=== PATIENT | male | born 1975 | race Caucasian/White ===

== ENCOUNTER 2020-12-06 07:47 | Emergency (ER) | payer OTHER ==
[2020-12-06] MEDS ORDERED: Lisinopril 10 MG Tab ONE (07:50)
[2020-12-06] MEDS ORDERED: Cyclobenzaprine 10 MG Tab ONE (07:50)
[2020-12-06] MEDS ORDERED: Acetaminophen/HYDROcodone 325-10 MG Tab ONE (07:50)
[2020-12-06] MEDS ORDERED: HYDROmorphone 2 MG/ML SDV IM ONE ×2 (09:04→09:36)
[2020-12-06] MEDS ORDERED: Cyclobenzaprine 10 MG Tab PO ONE (09:10)
[2020-12-06] MEDS ORDERED: Ondansetron 4 MG/2 ML SDV IVPUSH PRN (09:11)
--- NOTE | 2020-12-06 09:19 | EDM.PDOC ---
ED HPI GENERAL MEDICAL PROBLEM - General Chief Complaint: General Stated Complaint: FALL Time Seen by Provider: 12/06/20 10:00 Source of Information: Reports: Patient, Family History Limitations: Reports: Other (pain) - History of Present Illness Onset: Other (2 days) Duration: Day(s):, Getting Worse Location: Reports: Back Quality: Reports: Sharp, Stabbing, Throbbing Severity: Severe Improves with: Reports: None Worsens with: Reports: None Associated Symptoms: Reports: Other (Contusion Rt gluteal) Bilateral Posterior Back Pain Score (Numeric/FACES): 10 Past Medical History Cardiovascular History: Reports: Other (See Below) (HTN) Social & Family History - Tobacco Use Tobacco Use Status *Q: Heavy Tobacco User Tobacco Use Within Last Twelve Months: Cigarettes Smoking Cessation Information Provided To Patient: No (not interested) ED ROS GENERAL - Review of Systems Review Of Systems: See Below Constitutional: Reports: No Symptoms HEENT: Reports: No Symptoms Respiratory: Reports: No Symptoms Cardiovascular: Reports: No Symptoms Endocrine: Reports: No Symptoms GI/Abdominal: Reports: No Symptoms : Reports: No Symptoms Musculoskeletal: Reports: Muscle Pain, Muscle Stiffness, Other (feet swelling ) Skin: Reports: Other (contusion Rt gluteal) Neurological: Reports: No Symptoms Psychiatric: Reports: No Symptoms Hematologic/Lymphatic: Reports: No Symptoms Immunologic: Reports: No Symptoms ED EXAM, GENERAL - Physical Exam Exam: See Below Exam Limited By: Other (pain) General Appearance: Severe Distress Eye Exam: Bilateral Eye: PERRL Ears: Normal External Exam Nose: Normal Inspection Throat/Mouth: Normal Inspection Head: Atraumatic, Normocephalic Neck: Normal Inspection, Non-Tender Respiratory/Chest: No Respiratory Distress, Lungs Clear GI/Abdominal: Normal Bowel Sounds, Soft, Non-Tender (Male) Exam: No Hernia Rectal (Males) Exam: Deferred Back Exam: Muscle Spasm, Vertebral Tenderness Extremities: Pedal Edema Neurological: Alert, Oriented, CN II-XII Intact Psychiatric: Normal Affect Skin Exam: Warm, Dry, Intact Lymphatic: No Adenopathy Course - Vital Signs Last Recorded V/S: Last Vital Signs Temp 36.4 C 12/06/20 10:42 Pulse 83 12/06/20 10:42 Resp 16 12/06/20 10:42 BP 174/104 H 12/06/20 10:42 Pulse Ox 94 L 12/06/20 10:42 - Orders/Labs/Meds Orders: Active Orders 24 hr Category Date Time Status Chest Abdomen Pelvis w wo Cont [CT] Stat Exams 12/06/20 Taken Head wo Cont [CT] Stat Exams 12/06/20 09:01 Taken Cyclobenzaprine [Flexeril] Med 12/06/20 09:23 Active 10 mg PO TID PRN Iopamidol [Isovue-300 (61%)] Med 12/06/20 10:45 Pending 100 ml IV . DIRECTED Ondansetron [Zofran] Med 12/06/20 09:11 Active 4 mg IVPUSH Q4H PRN Sodium Chloride 0.9% [Normal Saline] Med 12/06/20 10:39 Pending 50 ml FLUSH ONETIME ONE Medication Orders Cyclobenzaprine HCl (Flexeril) 10 mg PO TID PRN PRN Reason: Pain (severe 7-10) Last Admin: 12/06/20 09:40 Dose: 10 mg Documented by: NELSLIN Iopamidol (Isovue-300 (61%)) 100 ml IV . DIRECTED DULCE Ondansetron HCl (Zofran) 4 mg IVPUSH Q4H PRN PRN Reason: Nausea/Vomiting Last Admin: 12/06/20 09:15 Dose: 4 mg Documented by: NELSLIN Sodium Chloride (Normal Saline) 50 ml FLUSH ONETIME ONE Stop: 12/06/20 10:40 Labs: Laboratory Tests 12/06/20 12/06/20 Range/Units 09:02 09:03 WBC 8.1 (4.0-11.0) K/uL RBC 4.80 (4.50-6.50) M/uL Hgb 15.8 (13.0-18.0) g/dL Hct 45.6 (40.0-54.0) % MCV 95 (76-96) fL MCH 32.9 H (27.0-32.0) pg MCHC 34.6 (31.0-35.0) g/dL RDW 15.1 (11.0-16.0) % Plt Count 175 (150-400) K/uL MPV 9.0 (6.0-10.0) fL Neut % (Auto) 74.7 H (45.0-70.0) % Lymph % (Auto) 12.2 L (20.0-40.0) % Waller % (Auto) 11.3 H (3.0-10.0) % Eos % (Auto) 1.7 (1.0-5.0) % Baso % (Auto) 0.1 (0.0-0.5) % Neut # (Auto) 6.02 (2.00-7.50) K/uL Lymph # (Auto) 0.98 L (1.50-4.00) K/uL Waller # (Auto) 0.91 H (0.20-0.80) K/uL Eos # (Auto) 0.14 (0.04-0.40) K/uL Baso # (Auto) 0.01 L (0.02-0.10) K/uL Sodium 137 (136-145) mmol/L Potassium 3.8 (3.5-5.1) mmol/L Chloride 103 (98-107) mmol/L Carbon Dioxide 25.1 (21.0-32.0) mmol/L Anion Gap 12.7 (5.0-15.0) mmol/L BUN 8 (8-26) mg/dL Creatinine 0.79 (0.70-1.30) mg/dL Est Cr Clr Drug Dosing TNP Estimated GFR (MDRD) > 60 (>60) MLS/MIN BUN/Creatinine Ratio 10.1 (6-25) Glucose 123 H (74-100) mg/dL Calcium 8.3 L (8.5-10.1) mg/dL Total Bilirubin 0.4 (0.0-1.0) mg/dL AST 33 (15-37) U/L ALT 49 (12-78) U/L Alkaline Phosphatase 50 (46-116) U/L Total Protein 7.7 (6.4-8.2) g/dL Albumin 3.8 (3.4-5.0) g/dL Globulin 3.9 (2.2-4.2) g/dL Albumin/Globulin Ratio 1.0 (0.8-2.0) Meds: Medications Generic Name Dose Route Start Last Admin Trade Name Freq PRN Reason Stop Dose Admin Cyclobenzaprine HCl 10 mg 12/06/20 09:23 12/06/20 09:40 Flexeril PO 10 mg TID PRN Administration Pain (severe 7-10) Iopamidol 100 ml 12/06/20 10:45 Isovue-300 (61%) IV . DIRECTED DULCE Ondansetron HCl 4 mg 12/06/20 09:11 12/06/20 09:15 Zofran IVPUSH 4 mg Q4H PRN Administration Nausea/Vomiting Sodium Chloride 50 ml 12/06/20 10:39 Normal Saline FLUSH 12/06/20 10:40 ONETIME ONE Discontinued Medications Generic Name Dose Route Start Last Admin Trade Name Freq PRN Reason Stop Dose Admin Cyclobenzaprine HCl 10 mg 12/06/20 09:10 12/06/20 09:15 Flexeril PO 12/06/20 09:11 10 mg ONETIME ONE Administration Hydromorphone HCl 0 mg 12/06/20 09:04 Dilaudid IM 12/06/20 09:05 ONETIME ONE Hydromorphone HCl 2 mg 12/06/20 09:36 12/06/20 09:40 Dilaudid IM 12/06/20 09:37 2 mg ONETIME ONE Administration Lorazepam 1 mg 12/06/20 09:24 12/06/20 09:26 Ativan IM 12/06/20 09:25 1 mg ONETIME ONE Administration Methocarbamol 500 mg 12/06/20 09:30 12/06/20 10:38 Robaxin IVPUSH 12/06/20 09:31 Not Given NOW STA Departure - Departure Time of Disposition: 11:15 Disposition: Home, Self-Care 01 Condition: Good Clinical Impression: Right rib fracture, Pulmonary nodules/lesions, multiple, Hypertension - Discharge Information *PRESCRIPTION DRUG MONITORING PROGRAM REVIEWED*: Yes *COPY OF PRESCRIPTION DRUG MONITORING REPORT IN PATIENT ALEX: Not Applicable Instructions: Rib Fracture, [id number] Forms: ED Department Discharge Additional Instructions: Follow up with PCP for Rt rib Fx, HTN and pulmonary evaluation. RTC or ED for new or worsening symptoms. Take Rx as prescribed for pain. Use ICE over Rt ribs, take OTC Tylenol or Ibuprofen additionally for pain and inflammation. Sepsis Event Note (ED) - Focused Exam Vital Signs: Vital Signs Temp Pulse Resp BP Pulse Ox 12/06/20 10:42 36.4 C 83 16 174/104 H 94 L 12/06/20 10:01 36.8 C 88 16 191/110 H 97 12/06/20 08:55 36.8 C 88 16 191/110 H 96 - My Orders Last 24 Hours: My Active Orders 12/06/20 Chest Abdomen Pelvis w wo Cont [CT] Stat 12/06/20 09:01 Head wo Cont [CT] Stat 12/06/20 09:11 Ondansetron [Zofran] 4 mg IVPUSH Q4H PRN 12/06/20 09:23 Cyclobenzaprine [Flexeril] 10 mg PO TID PRN 12/06/20 10:39 Sodium Chloride 0.9% [Normal Saline] 50 ml FLUSH ONETIME ONE 12/06/20 10:45 Iopamidol [Isovue-300 (61%)] 100 ml IV . DIRECTED - Assessment/Plan Last 24 Hours: My Active Orders 12/06/20 Chest Abdomen Pelvis w wo Cont [CT] Stat 12/06/20 09:01 Head wo Cont [CT] Stat 12/06/20 09:11 Ondansetron [Zofran] 4 mg IVPUSH Q4H PRN 12/06/20 09:23 Cyclobenzaprine [Flexeril] 10 mg PO TID PRN 12/06/20 10:39 Sodium Chloride 0.9% [Normal Saline] 50 ml FLUSH ONETIME ONE 12/06/20 10:45 Iopamidol [Isovue-300 (61%)] 100 ml IV . DIRECTED
[2020-12-06] MEDS ORDERED: Cyclobenzaprine 10 MG Tab PO PRN (09:23)
[2020-12-06] MEDS ORDERED: LORazepam 2 MG/ML SDV IM ONE (09:24)
[2020-12-06] MEDS ORDERED: Methocarbamol 1,000 MG/10 ML SDV IVPUSH STA (09:30)
[2020-12-06] MEDS ORDERED: Sodium Chloride 0.9% 50 ML SDV FLUSH ONE (10:39)
[2020-12-06] MEDS ORDERED: Iopamidol 612 MG/ML 100 ML Bottle IV SCH (10:45)
[2020-12-06] MEDS ORDERED: Labetalol 100 MG/20 ML MDV IVPUSH ONE (11:19)
--- NOTE | 2020-12-07 07:27 | CT ---
Date of Service: 12/06/20 Clinical Data: fall UNENHANCED BRAIN CT: Multislice acquisition through the brain without IV contrast was performed. No priors. No masses or mass effect. No intracranial hemorrhage. No evidence of acute or subacute infarct. No osseous abnormalities. IMPRESSION: No acute intracranial abnormalities. [id number] [facility]
--- NOTE | 2020-12-07 09:24 | CT ---
DATE OF SERVICE: 12/06/20 CLINICAL DATA: fall UNENHANCED AND ENHANCED CHEST CT: Multislice acquisition through the chest without and with IV contrast was performed. No priors. Breathing motion artifact degrades image quality. There are atelectatic changes in the dependent portion of both lungs and in both lung bases. There are multiple less than 6 mm nodules noted in both lungs. The lungs are otherwise clear. No areas of consolidation. No pneumothorax. No pleural effusion. No aortic aneurysm or dissection. There is suboptimal contrast opacification of the pulmonary arteries. No evidence of PE. The heart size is normal. There is a small pericardial effusion. There are multiple mediastinal nodes. A couple of these are mildly enlarged measuring 11 mm. There is also bilateral hilar nodes. One in the right hilum is enlarged. There is a small hiatal hernia. There is gas noted within the thoracic esophagus. This is probably related to GE reflux. There is degenerative disc disease throughout the thoracic spine. There is mild anterior wedging of a mid thoracic vertebra, probably chronic. There is a lucency through the right 11th rib consistent with a nondisplaced fracture. No other significant findings. IMPRESSION: 1. Multiple less than 6 mm pulmonary nodules. There are also enlarged lymph nodes in the mediastinum and right hilum. Malignant process should be considered. Infectious or inflammatory processes should also be considered. 2. Fracture right 11th rib. UNENHANCED AND ENHANCED ABDOMEN AND PELVIC CT: Multislice acquisition through the abdomen and pelvis without and with IV contrast was performed. No priors. Motion artifact degrades image quality. There is diffuse fatty infiltration of the liver. No focal hepatic lesions. The gallbladder appears normal. No biliary duct dilatation. The spleen appears normal. The pancreas appears normal. The right and left adrenals appear normal. The right and left kidneys enhance symmetrically. No nephrocalcinosis or nephrolithiasis. No hydronephrosis or hydroureter. The bladder is fluid-filled. It appears normal. The appendix is not dilated. No evidence of appendicitis. There is a moderate amount of stool present in the right colon. No free air. No free fluid. No dilated loops of bowel. No adenopathy. No aortic aneurysm or dissection. There is mild degenerative disc disease at multiple levels in the lower thoracic and lumbar spine. No lytic or blastic bone lesions. No acute displaced fractures. IMPRESSION: No acute abnormalities. JOB #[id number] MTDD
== END 2020-12-06 12:03 | disposition home or self-care (01) ==
LOC: LB.ED 07:47
DX: S22.31XA Fracture of one rib, right side, initial encounter for closed fracture (principal); I10 Essential (primary) hypertension; R91.8 Other nonspecific abnormal finding of lung field; Z72.0 Tobacco use; X58.XXXA Exposure to other specified factors, initial encounter
CPT/HCPCS: 36415; 70450; 71270; 74178; 80053; 85025; 96372; 96374; 96375; 99284-25; A9270-GY; J1170; J2060; J2405; J3490